=== PATIENT | female | born 1980 | race Caucasian/White ===

== ENCOUNTER 2024-04-07 08:57 | Day surgery (SDC) | payer OTHER ==
[2024-04-07 09:13] VITALS: RESP 18; TEMP 97.9
[2024-04-07] MEDS: FERRIC CARBOXYMALTOSE 750 MG in SODIUM CHLORIDE 250 ML IVPB ONE (09:31)
[2024-04-07 10:46] VITALS: BP 138/55; PULSE 87
== END 2024-04-07 10:45 | disposition home or self-care (01) ==
LOC: JONCNONCHE 08:57 → JONCCHEMO 08:57 → J7W 09:03 → JONCNONCHE 10:45
PROVIDERS: ATTEND Internal Medicine Hematology & Oncology
PROC: 3E033GC Introduction of Other Therapeutic Substance into Peripheral Vein, Percutaneous Approach (ICD-10-PCS; principal; 2024-04-07)
DX: D50.9 Iron deficiency anemia, unspecified (principal)
CPT/HCPCS: 96365; J1439

== ENCOUNTER 2024-04-14 09:00 | Day surgery (SDC) | payer OTHER ==
[2024-04-14] MEDS: FERRIC CARBOXYMALTOSE 750 MG in SODIUM CHLORIDE 250 ML IVPB ONE (09:19)
[2024-04-14 11:06] VITALS: RESP 18; TEMP 97.9
[2024-04-14 11:46] VITALS: BP 133/62; PULSE 88
== END 2024-04-14 10:25 | disposition home or self-care (01) ==
LOC: JONCNONCHE 09:00 → J7W 09:00 → JONCNONCHE 10:25
PROVIDERS: ATTEND Internal Medicine Hematology & Oncology
PROC: 3E033GC Introduction of Other Therapeutic Substance into Peripheral Vein, Percutaneous Approach (ICD-10-PCS; principal; 2024-04-14)
DX: D50.9 Iron deficiency anemia, unspecified (principal)
CPT/HCPCS: 96365; J1439